=== PATIENT | male | born 1945 | race Caucasian/White ===

== ENCOUNTER → 2017-06-13 | Outpatient (CLI) | payer MEDICARE, OTHER ==
[2014-06-23 12:59] VITALS: BMI 22.9
[~2017-06-13] MED LIST: AZIT-1 PO; AZIT-17 PO; Acetaminophen PO; CALC600T63 PO; CALTRATE; CETI-169 PO; CHOL200021 PO; DOXY-181 PO; DULO30CA6 PO; Docusate Sodium PO; FERR-53 PO; FLUNR; FLUNR ENA; FOLI-68 PO; GLUCOSAMINE; HYDR115S2 PO; IBAN150T6 PO; IPRA3AMP21 IH; LEFL10TA; LEVO-85 PO; METH2.5T43 PO; METH25VI31 SUBQ; METH4TAB66 PO; MOX400 PO; MULT-820 PO; OMEG-11 PO; OSE75 PO; PER PO; PNEI IJ; PNEI IM; PNEU0.5D3 IM; PRE1 PO; PRED-1 PO; PRED-416 PO; PRED20TA6 PO; RANI-320 PO; SILD100T59 PO; TER20I; TERB250T63 PO; VITA1CAP46 PO
== END ==
LOC: LAB 10:52
PROVIDERS: ATTEND Nurse Practitioner Family
DX: R94.6 Abnormal results of thyroid function studies (principal)
CPT/HCPCS: 36415; 84439; 84443; 84480

== ENCOUNTER → 2017-07-03 | Outpatient (CLI) | payer MEDICARE, OTHER ==
[2014-06-23 12:59] VITALS: BMI 22.9
[2017-07-03 11:00] LABS: PLATELET COUNT, AUTOMATED 274 K/uL (150-450)
== END ==
LOC: LAB 10:34
PROVIDERS: ATTEND Internal Medicine Rheumatology
DX: M81.0 Age-related osteoporosis without current pathological fracture (principal); Z79.899 Other long term (current) drug therapy; M05.79 Rheumatoid arthritis with rheumatoid factor of multiple sites without organ or systems involvement
CPT/HCPCS: 36415; 82040; 82247; 82306; 82310; 82374; 82435; 82565; 82947; 84075; 84132; 84155; 84295; 84450; 84460; 84520; 85025; 85651; 86140

== ENCOUNTER → 2017-11-06 | Outpatient (CLI) | payer MEDICARE, OTHER ==
[2014-06-23 12:59] VITALS: BMI 22.9
--- NOTE | 2017-11-06 13:42 | RADIOLOGY IMAGING REPORT ---
FACILITY: [facility] PATIENT NAME: Guillaume Saldivar : 1945 MR: [id number] V: [id number] EXAM DATE: ORDERING PHYSICIAN: INA SAWYER TECHNOLOGIST: Location: [facility] [place] Patient: Guillaume Saldivar : 1945 Visit/Account:[id number] Date of Sevice: 11/06/2017 Exam type: CHEST PA AND LAT History: Productive cough Comparison: April 02, 2017. Findings: Again noted is hyperinflation of the lung weber and chronic blunting of the right costophrenic angle and chronic peribronchial thickening throughout the lungs appears well totally unchanged. Volume lo ss of the right lung, which appears to be postsurgical in nature, also appears similar to the prior s tudy with shift of the mediastinum towards the right. The cardiac silhouette is normal in size. . The visualized bones are demineralized IMPRESSION: 1. Hyperinflation of the lung weber and post surgical changes of the right lung again noted with no evidence of acute pulmonary consolidation Report Dictated By: Lalita Forde MD at 11/06/2017 1:35 PM Report E-Signed By: Lalita Forde MD at 11/06/2017 1:37 PM WSN:[email or web address]
== END ==
LOC: RAD 11:35
PROVIDERS: ATTEND Internal Medicine Pulmonary Disease
DX: R91.8 Other nonspecific abnormal finding of lung field (principal)
CPT/HCPCS: 71046

== ENCOUNTER 2018-05-30 09:00 | Outpatient (RCR) | payer MEDICARE, OTHER ==
[2014-06-23 12:59] VITALS: BMI 22.9
[~2018-05-30 09:00] MED LIST changes: +IPRA3AMP10 IH; -IPRA3AMP21 IH
== END 2018-06-03 ==
LOC: CARD 09:00
PROVIDERS: ATTEND Nurse Practitioner Family
DX: R09.02 Hypoxemia (principal)
CPT/HCPCS: 94667; G0239

== ENCOUNTER 2018-06-04 09:00 | Outpatient (RCR) | payer MEDICARE, OTHER ==
[2014-06-23 12:59] VITALS: BMI 22.9
== END 2018-06-04 18:00 | disposition home or self-care (01) ==
LOC: CARD 09:00
PROVIDERS: ATTEND Nurse Practitioner Family
DX: R09.02 Hypoxemia (principal)